=== PATIENT | male | born 1955 | race Caucasian/White ===

== ENCOUNTER 2016-12-08 18:49 | Emergency (ER) | payer SELFPAY ==
[~2016-12-08] VITALS: Ht 170.2 cm; Wt 80.0 kg
[2016-12-09] MEDS ORDERED: VISCOUS LIDOCAINE 2% 15 ML UDC PO STA (00:17)
[2016-12-09] MEDS ORDERED: SODIUM CHLORIDE 0.9% 1,000 ML IV ONE (00:17)
[2016-12-09] MEDS ORDERED: DICYCLOMINE 10 MG/5 ML ORAL SYR PO STA (00:17)
[2016-12-09] MEDS ORDERED: MAGNESIUM/ALUMINUM HYDROXIDE/SIMETHICONE 30ML UDC PO STA (00:17)
[2016-12-09] MEDS ORDERED: ONDANSETRON HCL 4MG/2ML VIAL IV STA (00:17)
[2016-12-09] MEDS ORDERED: ACETAMINOPHEN 325MG TABLET PO ONE (00:30)
[2016-12-09 00:32] LABS: CLARITY URINE CLEAR (CLEAR); COLOR URINE DARK YELLOW (YELLOW); GLUCOSE URINE NEGATIVE (NEGATIVE); KETONES URINE TRACE (NEGATIVE); LEUKOCYTE ESTERASE URINE NEGATIVE (NEGATIVE); NITRITE URINE NEGATIVE (NEGATIVE); OCCULT BLOOD URINE 2+ (NEGATIVE); PROTEIN URINE 2+ (NEGATIVE); SPECIFIC GRAVITY URINE 1.034 (1.005-1.030)
[2016-12-09 00:33] LABS: BASOPHILS % 0.2 % (0.0-2.0); EOSINOPHILS % 0.1 % (0.0-5.0); HEMATOCRIT. 40.5 % (42.0-52.0); HEMOGLOBIN. 14.3 g/dL (14.0-18.0); LYMPHOCYTES % 15.1 % (20.0-50.0); MEAN CORPUSCULAR HEMOGLOBIN 31.2 pg (28.0-32.0); MEAN CORPUSCULAR VOLUME 88.1 fL (80.0-94.0); MEAN PLATELET VOLUME 8.9 fl (7.4-10.4); MONOCYTES % 10.5 % (2.0-8.0); NEUTROPHILS % 74.1 % (40.0-76.0); PLATELET 202 x1000/uL (130-400); RED BLOOD CELL COUNT 4.59 mill/uL (4.7-6.1); RED CELL DISTRIBUTION WIDTH 13.8 % (11.6-14.6)
[2016-12-09 00:40] LABS: CHLORIDE 99 mEq/L (98-107); INR 1.1; PROTHROMBIN TIME 11.1 sec
[2016-12-09 00:49] LABS: CARBON DIOXIDE 28 mEq/L (21-32)
[2016-12-09 01:22] VITALS: BP 123/70
== END 2016-12-09 01:57 | disposition home or self-care (01) ==
LOC: ER 18:49
DX: J18.9 Pneumonia, unspecified organism (principal)
CPT/HCPCS: 36415; 71010; 80053; 81001; 83690; 85025; 85610; 93005; 96361; 96374; 99285; J2405; J7030